=== PATIENT | male | born 1995 | race Asian ===

== ENCOUNTER 2019-10-19 16:35 | Emergency (ER) | payer BC, OTHER ==
[~2019-10-19] VITALS: Ht 165.1 cm; Wt 72.6 kg
[2019-10-19 18:47] VITALS: BP 128/72
== END 2019-10-19 18:51 | disposition home or self-care (01) ==
LOC: ER 16:35 → EDBD 16:35 → ER 18:51
DX: S80.811A Abrasion, right lower leg, initial encounter (principal); X58.XXXA Exposure to other specified factors, initial encounter; Y93.89 Activity, other specified; Y92.89 Other specified places as the place of occurrence of the external cause; Y99.8 Other external cause status
CPT/HCPCS: 73562; 73590